=== PATIENT | male | born 1985 | race African-American/Black ===

== ENCOUNTER → 2019-04-14 | Emergency (ER) | payer MEDICAID ==
--- NOTE | 2019-04-14 20:03 | NUR ---
CALLED PATIENT IN WAITING ROOM. NO RESPONSE.
--- NOTE | 2019-04-14 21:11 | NUR ---
CALLED PT IN WAITING ROOM. NO RESPONSE.
--- NOTE | 2019-04-14 21:53 | NUR ---
CALLED PATIENT IN WAITING ROOM. NO RESPONSE.
== END | disposition left against medical advice (07) ==
LOC: ER 18:31
DX: Z53.21 Procedure and treatment not carried out due to patient leaving prior to being seen by health care provider (principal)